=== PATIENT | male | born 1950 | race Caucasian/White ===

== ENCOUNTER 2019-03-12 09:16 | Day surgery (SDC) | payer OTHER, MEDICARE, SELFPAY ==
[2019-03-12 09:35] VITALS: BMI 25.8
[2019-03-12] MEDS: PROPARACAINE 0.5% OPHTH SOL 2 DROPS EYE-OP (09:35)
[2019-03-12] MEDS: CATARACT EYE COMPOUND (10 DROPS/SYRINGE) 3 DROPS EYE-OP (09:40)
[2019-03-12 09:44] VITALS: BP 126/73; PULSE 58; RESP 16; TEMP 36.8; O2SAT 99
--- NOTE | 2019-03-12 11:21 | PM.PREOP ---
Pre-operative Note Interval Note History & Physical reviewed/Exam performed by Physician: No Changes to H&P: No
--- NOTE | 2019-03-12 11:22 | P.OP_ITS ---
Operative Date/Time/Diagnoses Pre-op diagnosis: Nuclear Cataract Left eye Post-op diagnosis: same Procedure & Clinicians Surgeon: Dell Calle Anesthesia Type: MAC +/- and Sedation Operative Notes Procedure in detail: Patient brought to the operating suite. Tetracaine drops placed in the left eye. Marking instrument was used to george the vertical and horizontal meridains. Patient was prepped and draped in sterile manner. Wire lid speculum was placed in the eye. Marking instrument was used to george the 70 degree meridian. Betadine drops were placed on the eye. This was irrigated. Lidocaine jelly was placed on the eye. A paracentesis port was created with a side-port blade. 0.1 mL 1% preservative free lidocaine was injected into the anterior chamber. The anterior chamber was deepened with viscoelastic. 2.6 mm keratome was used to create a temporal clear corneal incision. Cystotome and Utrata forceps were used to create continuous tear capsulorrhexis. Balanced salt solution was used to hydro dissect the nucleus. The phacoemulsification handpiece was inserted and the nucleus was removed using the stop and chop technique. The irrigation aspiration handpiece was inserted and the remaining cortex was removed. Anterior chamber was deepened with viscoelastic. An Koenig BQT350 intraocular lens with a power of 16.0 was injected into the capsular bag. Irrigation aspiration handpiece was inserted and the remaining viscoelastic was removed. The lens was rotated to the 70 degree meridian. Incision was hydrated with balanced salt solution and found to be leak free with pressure with Weck- Casandra sponges. 0.1 mL Vigamox injected anterior chamber. 0.3 mL Kenalog 10 mg was injected subconjunctivally. Lid speculum was removed. The patient left the operating room in excellent condition. Complications: none Condition: stable Disposition: same day surgery
[2019-03-12] MEDS: MOXIFLOXACIN OPHTH DROPS 3 ML BOTTLE 2 DROPS INJ (11:43)
[2019-03-12] MEDS: TRIAMCINOLONE 50 MG/5 ML VIAL INJ (11:43)
[2019-03-12] MEDS: CHONDROIDTIN/SOD HYALURONATE 1.05 ML SYRINGE INTRAOCULA (11:43)
[2019-03-12] MEDS: PHENYLEPHRINE/LIDOCAINE VIAL (OR) 0.2 ML EYE-OP (11:43)
[2019-03-12] MEDS: LIDOCAINE JELLY 2% 5 ML 1 APPLIC TOP (11:44)
[2019-03-12] MEDS: TETRACAINE 0.5% OPHTH DROPS 4 ML 2 DROPS EYE-OP (11:44)
[2019-03-12] MEDS: BALANCED SALT IRRIG SOLN NO.2 500 ML, EPINEPHrine 1 MG IRR (11:44)
[2019-03-12 11:55] VITALS: BP 130/82; PULSE 54; RESP 15; TEMP 36.4; O2SAT 98
[2019-03-12 11:56] VITALS: BP 130/82; PULSE 54; RESP 15; TEMP 36.4; O2SAT 98
== END 2019-03-12 12:05 ==
LOC: OR 09:20
PROVIDERS: Visit Provider Ophthalmology
DX: H25.12 Age-related nuclear cataract, left eye (principal); I10 Essential (primary) hypertension
CPT/HCPCS: J0171; J2250; J3301; V2787

== ENCOUNTER → 2019-11-12 14:41 | Outpatient (CLI) | payer OTHER, MEDICARE, SELFPAY ==
--- NOTE | 2019-11-12 | DI.US.S_ITS ---
PROCEDURE: US PELVIC LIMITED INDICATIONS: SYMPTOMS INVOLVING THE GENITOURINARY SYSTEM TECHNIQUE: Real-time transabdominal scanning was performed of the pelvic viscera, with image documentation. COMPARISON: None. FINDINGS: Prevoid bladder volume is 831 cc, post void residual is 278. Prostate measures 4.2 x 3.5 x 4.0 cm. IMPRESSION: Limited pelvic ultrasound showing a moderate post void residual of 278 cc in this patient. No bladder calculus or diverticulum is seen. Dictated by: Ld Gonzalez M.D. on 11/12/2019 at 16:47 Approved by: Ld Gonzalez M.D. on 11/12/2019 at 16:49
== END ==
PROVIDERS: Visit Provider Internal Medicine
DX: R39.9 Unspecified symptoms and signs involving the genitourinary system (principal)
CPT/HCPCS: 76857

== ENCOUNTER → 2022-08-24 11:18 | Outpatient (CLI) | payer MEDICARE, SELFPAY ==
--- NOTE | 2022-08-24 | DI.US.S_ITS ---
PROCEDURE: US ABDOMEN LIMITED INDICATIONS: INGUINAL HERNIA TECHNIQUE: Real-time focused scanning was performed of the inguinal region, with image documentation. COMPARISON: None. FINDINGS: Left inguinal defect measures 1.5 cm in with is seen with peristalsing bowel loops seen extending into herniation sac. IMPRESSION: Left inguinal hernia as above. Dictated by: Brice Adam M.D. on 08/24/2022 at 12:39 Approved by: Brice Adam M.D. on 08/24/2022 at 12:40
== END ==
PROVIDERS: PCP Internal Medicine; Referring Provider Internal Medicine; Visit Provider Internal Medicine
DX: K40.90 Unilateral inguinal hernia, without obstruction or gangrene, not specified as recurrent (principal)
CPT/HCPCS: 76705

== ENCOUNTER → 2022-09-26 15:23 | Outpatient (CLI) | payer OTHER, SELFPAY ==
[2022-09-26 16:13] LABS: Add Manual Diff / Slide Review NO; Basophils Absolute Auto 0 /uL (0-100); Basophils Percent Auto 0.4 % (0-2); Eosinophils Absolute Auto 200 /uL (0-450); Eosinophils Percent Auto 2.8 % (2-4); Hematocrit 43.1 % (41-53); Hemoglobin 14.8 g/dL (13.5-17.5); Lymphocytes Absolute Auto 1900 /uL (1100-4500); Lymphocytes Percent Auto 26.4 % (25-40); Mean Corpuscular HGB Conc 34.4 % (30-36); Mean Corpuscular Hemoglobin 28.6 PG (26-34); Mean Corpuscular Volume 83.2 fL (80-100); Monocytes Absolute Auto 500 /uL (0-900); Monocytes Percent Auto 7.6 % (3-14); Neutrophils Absolute Auto 4500 /uL (1500-7000); Neutrophils Percent Auto 62.8 % (50-75); Red Blood Cell Count 5.18 X10^6/uL (4.5-5.9); Red Cell Distribution Width 13.6 % (11.6-14.8); White Blood Cell Count 7.2 X10^3/uL (4.5-11.0)
[2022-09-26 16:15] LABS: Platelet Count 15 X10^3/uL (150-400)
[2022-09-26 16:34] LABS: COVID19 -Nasal RAPID Negative (Negative)
[2022-09-26 22:03] LABS: Anisocytosis 1+
[2022-09-26 22:04] LABS: Polychromasia 1+
== END ==
PROVIDERS: PCP Internal Medicine; Referring Provider Surgery; Visit Provider Surgery
DX: Z01.812 Encounter for preprocedural laboratory examination (principal); Z86.2 Personal history of diseases of the blood and blood-forming organs and certain disorders involving the immune mechanism; Z20.822 Contact with and (suspected) exposure to COVID-19
CPT/HCPCS: 36415; 85025; 86850; 86900; 86901; 87635; C9803

== ENCOUNTER 2022-09-28 09:11 | Day surgery (SDC) | payer OTHER, SELFPAY ==
[2022-09-26 12:28] VITALS: BMI 25.1
[2022-09-28] VITALS (14 sets, daily range): BP systolic 114–155; BP diastolic 57–84; PULSE 50–63; RESP 11–16; TEMP 36.2–37.2; O2SAT 92–99; BMI 25.1
[2022-09-28] MEDS: LACTATED RINGERS 1,000 ML 100 ML IV ×2 (09:59→12:52)
--- NOTE | 2022-09-28 11:23 | SUR.PREOP ---
Platlets infused. No reaction noted.
--- NOTE | 2022-09-28 11:36 | PM.OP.1 ---
Operative Date/Time/Diagnoses Date of procedure: 09/28/22 Time of procedure: 11:36 Pre-op diagnosis: Umbilical hernia Post-op diagnosis: same Procedure & Clinicians Procedure: Open repair umbilical hernia with mesh Same procedure as scheduled: Yes Indications: Symptomatic non reducible umbilical hernia Surgeon: Kostas Feliz Anesthesia Type: General Operative Notes Findings: Large amount of incarcerated omentum within the hernia sac. Hernia fascial defect approximately 4 cm Specimen(s): none sent Estimated Blood Loss (mL): 50 Procedure in detail: Patient was brought to the operating room placed supine on the table. Bilateral lower extremity compression devices were applied. General anesthesia was induced and they were intubated with an endotracheal tube. They received 2 g of Ancef prior to skin incision. They were prepped and draped in sterile fashion. A time-out was performed. A curvilinear incision was made inferior to the umbilicus. The subcutaneous tissues were divided. The umbilical hernia was identified and the hernia sac was dissected off the umbilical skin and circumferentially off of the fascia defect. The hernia sac was sharply opened and contained incarcerated but viable omentum. The omentum could not adequately be reduced back into the abdomen and therefore it was ligated and resected.. Using blunt dissection I carefully carefully freed the hernia sac from beneath the fascia defect in order to accomodate the mesh. The fascia defect was 4 cm in maximal diameter. A Bard Ventralex ST hernia patch 8 x 12 cm was inserted beneath the fascia defect in a sublay position. The mesh was anchored in multiple locations using Ethibond suture to the fascia and the fascial defect was closed over the mesh. The umbilical skin was tacked to the subcutaneous tissues and then the remainder of the subcutaneous tissues were reapproximated using 3 0 Vicry,l skin closed with 4 0 Monocryl followed by the application of Dermabond and Steri-Strips. Sponge instrument count at the end of the operation was correct. Patient tolerated procedure well was extubated and transferred to postoperative care unit in stable condition. Complications: none Post-operative Condition: stable Disposition: same day surgery
--- NOTE | 2022-09-28 11:47 | PM.PREOP ---
Pre-operative Note Interval Note History & Physical reviewed/Exam performed by Physician: Yes Changes to H&P: No H&P completed within 30 days and has changed as indicated here:: Hx ITP plt 15k today transfused 6 pack of plts preoperatively.
[2022-09-28] MEDS: CEFAZOLIN 2 GM/100 ML PREMIX 100 ML IV (12:08)
--- NOTE | 2022-09-28 12:15 | SUR.OPER ---
Supine on padded OR bed, head on pillow, arms secured on padded arm boards at <90 degrees abduction, legs uncrossed, safety belt at thigh, tape over blanket over lower legs.
[2022-09-28] MEDS: BUPIVACAINE 0.25% (PF) VIAL 30 ML INJ (12:20)
--- NOTE | 2022-09-28 15:55 | PM.OP.1 ---
Operative Date/Time/Diagnoses Date of procedure: 09/28/22 Time of procedure: 15:57 Pre-op diagnosis: left inguinal hernia Post-op diagnosis: same Procedure & Clinicians Procedure: open left inguinal hernia repair Same procedure as scheduled: Yes Indications: symptomatic reducible left inguinal hernia Surgeon: Kostas Mckeon Yes if Unassisted: Yes Anesthesia Type: General Operative Notes Findings: no direct floor defect. Indirect hernia only Specimen(s): none sent Estimated Blood Loss (mL): 50 Procedure in detail: The patient was placed supine on the table and bilateral lower extremity compression devices were applied. Anesthesia was induced they were intubated with an LMA and received Ancef. A time-out was performed. They were prepped and draped in sterile fashion. The left external inguinal ring and the anterior superior iliac crest were identified and marked. 1 finger breath above the inguinal ligament the skin was infiltrated with 0.25% bupivacaine. The skin incision was made, the subcutaneous tissues were divided with electrocautery exposing the external oblique aponeurosis which was then opened along the direction of its fibers. Using blunt dissection the internal oblique aporneurosis was from the external oblique upper leaflet. The cord was carefully dissected away from the inguinal canal adjacent to the pubic tubercle. The cord including the vas deferens, testicular bloody supply, ilioguinal and genital nerve were encircled with a Howell drain. The inguinal canal floor was closely examined there was no evidence of a direct floor defect.. The cremasteric fibers surrounding the cord were divided adjacent to the internal ring. The vas deferens and the testicular vessels were preserved and protected. The cord contents were carefully explored. There was a small indirect hernia on the anterior medial aspect of the cord which was skeletonized away from the vas deferens and testicular blood supply. The indirect hernia was skeletonized back to the internal ring and reduced spontaneously into the abdomen. A 7x 15 cm lightweight Bard Pro Loop hernia mesh was anchored to the insertion of the rectus muscle at the pubic tubercle such that there was approximately 2 cm of tubercle overlap with Ethibond. The inferior edge of the mesh was secured to the shelving edge of the inguinal ligament using Ethibond. Interrupted 3 0 Vicryl suture was used to anchor the superior aspect of the mesh to the conjoined tendon in several places. The tails were then reapproximated loosely around the spermatic cord. The tails of the mesh were then tucked under the external oblique aponeurosis. The repair was checked for hemostasis. The wound was irrigated with sterile saline. The external oblique aponeurosis was reapproximated in a running fashion using 3 0 Vicryl. The subcutaneous tissues were reapproximated with 3 0 Vicryl skin closed with 4 0 Monocryl followed by the application of Dermabond. At the end of the operation I ensured that both testicles were within the scrotum. The sponge instrument count at the end operation was correct. The patient emerged from anesthesia was extubated and transferred to the postoperative care unit in stable condition. A total of 30 ml of of 0.25% bupivicaine was used to infiltrate the skin. Complications: none Post-operative Condition: stable Disposition: same day surgery
== END 2022-09-28 14:07 | disposition home or self-care (01) ==
PROVIDERS: PCP Internal Medicine; Referring Provider Surgery; Visit Provider Surgery
PROC: (CPT 49505; principal; 2022-09-28 11:45)
DX: K40.90 Unilateral inguinal hernia, without obstruction or gangrene, not specified as recurrent (principal); I10 Essential (primary) hypertension
CPT/HCPCS: 49505; 36415; 36430; 86850; 86900; 86901; J0330; J0690; J1100; J2250; J2405; J2704; J3010; P9035

== ENCOUNTER → 2025-01-20 17:07 | Outpatient (CLI) | payer MEDICARE, SELFPAY ==
--- NOTE | 2025-01-20 17:09 | DI.MRI.S_ITS ---
PROCEDURE: MR SHOULDER LT WO CON INDICATIONS: LEFT SHOULDER PAIN TECHNIQUE: Noncontrast oblique coronal T2 fast spin echo with fat saturation, oblique sagittal T1 spin echo and T2 fast spin echo with fat saturation, axial T1 spin echo and T2 fast spin echo with fat saturation through the shoulder. COMPARISON: [facility], CR, XR SHOULDER 2+ VIEWS LEFT, 01/09/2025, 8:18. FINDINGS: Image quality: Excellent. Rotator cuff: In the supraspinatus, there is low-grade, partial width, interstitial tear at the footprint. Mild articular sided fraying at the critical zone of the supraspinatus. Mild tendinosis of the supraspinatus. The infraspinatus is unremarkable. The teres minor is intact. Low-grade articular sided and interstitial tear of the subscapularis. No muscle edema. Mild fatty atrophy the teres minor. Bones and bursae: Moderate to severe degenerative changes of the acromioclavicular joint. Type 1 acromion. No os acromiale. Mild subacromial/subdeltoid bursitis. Moderate subchondral cystic changes versus erosion at the anterior greater tuberosity with associated marrow edema. Mild marrow edema at the lesser tuberosity, favor reactive. No acute fracture. Mild superior subluxation of the humeral head. No focal chondral defect of the glenohumeral articulation. Capsule and soft tissues: Anterior superior labral tear. Diffuse labral degeneration. No paralabral cyst. Mild tenosynovitis of the extra-articular biceps tendon. Low-grade interstitial tear of the proximal extra-articular biceps tendon. Low-grade interstitial tear of the intra-articular biceps tendon. Small glenohumeral effusion. No intra-articular body. IMPRESSION: 1. 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 2. Moderate subchondral cystic changes versus erosion at the anterior greater tuberosity with associated marrow edema. Recommend clinical correlation for rheumatoid arthritis. 3. Low-grade tear of the supraspinatus , subscapularis, and the proximal biceps tendon. 4. Mild fatty atrophy the teres minor. Dictated by: Sharon Morales M.D. on 01/21/2025 at 9:55 Approved by: Sharon Morales M.D. on 01/21/2025 at 10:05
== END ==
PROVIDERS: PCP Internal Medicine; Referring Provider Orthopaedic Surgery; Visit Provider Orthopaedic Surgery
DX: S46.212A Strain of muscle, fascia and tendon of other parts of biceps, left arm, initial encounter (principal); M75.112 Incomplete rotator cuff tear or rupture of left shoulder, not specified as traumatic; M25.512 Pain in left shoulder
CPT/HCPCS: 73221